=== PATIENT | male | born 1985 | race Caucasian/White ===

== ENCOUNTER → 2020-08-15 | Outpatient (CLI) | payer BC ==
[2020-08-15 15:32] LABS: BASO % 0 % (0-3); EOS # 0.1 x10^3/uL (0.0-0.7); EOS % 2 % (0-3); HEMATOCRIT 43.4 % (39.0-53.0); HEMOGLOBIN 15.3 g/dL (13.0-17.5); LYMPH # 1.9 x10^3/uL (1.0-4.8); LYMPH % 26 % (24-48); MEAN CORPUSCULAR HEMOGLOBIN 31 pg (25-35); MEAN CORPUSCULAR HGB CONC 35 g/dL (31-37); MEAN CORPUSCULAR VOLUME 89 fL (79-100); MONO # 0.5 x10^3/uL (0.0-1.1); MONO % 7 % (0-9); NEUT # 4.8 x10^3uL (1.8-7.7); NEUT % 65 % (31-73); PLATELET COUNT 269 x10^3/uL (140-400); RED BLOOD COUNT 4.88 x10^6/uL (4.30-5.70); RED CELL DISTRIBUTION WIDTH 12.5 % (11.5-14.5); WHITE BLOOD COUNT 7.4 x10^3/uL (4.0-11.0)
[2020-08-15 15:44] LABS: ALBUMIN 3.9 g/dL (3.4-5.0); ALBUMIN/GLOBULIN RATIO 1.1 (1.0-1.7); CALCIUM 8.5 mg/dL (8.5-10.1); GFR 52.7; TOTAL BILIRUBIN 0.6 mg/dL (0.2-1.0); TOTAL PROTEIN 7.5 g/dL (6.4-8.2)
[2020-08-15 15:47] LABS: BILIRUBIN,URINE NEG (NEG); CLARITY,URINE CLEAR; COLOR,URINE YELLOW; GLUCOSE,URINE NEG (NEG)
[2020-08-15 15:48] LABS: CREATININE 1.5 mg/dL (0.7-1.3); NITRITE,URINE NEG (NEG)
[2020-08-15 15:49] LABS: BACTERIA,URINE 0 /HPF (0-FEW); POTASSIUM 3.6 mmol/L (3.5-5.1); RBC,URINE 0 /HPF (0-2); WBC,URINE 0 /HPF (0-4)
[2020-08-16 00:06] LABS: TESTOSTERONE TOTAL 113 ng/dL (264-916)
[2020-08-16 13:42] LABS: HDLC 43 mg/dL (40-60); TRIGLYCERIDES 602 mg/dL (0-150)
[2020-08-16 13:43] LABS: THYROID STIM HORMONE (TSH) 1.304 uIU/mL (0.358-3.740)
[2020-08-16 17:08] LABS: FREE PSA/PSA RATIO 43.3 % (.); PSA FREE 0.13 ng/mL; PSA TOTAL 0.3 ng/mL (0.0-4.0)
== END ==
LOC: LAB 14:34
PROVIDERS: ATTEND Family Medicine
DX: I10 Essential (primary) hypertension (principal); E29.1 Testicular hypofunction; F34.1 Dysthymic disorder
CPT/HCPCS: 36415; 80053; 80061; 81001; 84153; 84154; 84403; 84443; 85025